=== PATIENT | male | born 1950 | race Caucasian/White ===

== ENCOUNTER 2019-03-07 15:51 | Emergency (ER) | payer OTHER ==
[~2019-03-07] VITALS: Ht 170.2 cm; Wt 68.0 kg
[2019-03-07] MEDS ORDERED: Roxicodone5 MG PO (17:23)
== END 2019-03-07 17:53 | disposition home or self-care (01) ==
LOC: ER 15:51
DX: S42.032A Displaced fracture of lateral end of left clavicle, initial encounter for closed fracture (principal); S00.81XA Abrasion of other part of head, initial encounter; S60.512A Abrasion of left hand, initial encounter; V18.0XXA Pedal cycle driver injured in noncollision transport accident in nontraffic accident, initial encounter
CPT/HCPCS: 29105; 36415; 70450; 72125; 73030; 96374-59; 96376-59; 99284-25; J3010

== ENCOUNTER 2019-03-10 09:54 | Day surgery (SDC) | payer OTHER ==
[~2019-03-10] VITALS: Ht 170.2 cm; Wt 62.2 kg
[~2019-03-10 09:54] MED LIST: Roxicodone5 MG PO
--- NOTE | 2019-03-10 10:26 | NUR ---
03/10/19 1026 Meghana Montanez WENT OUT TO WAITING AREA AND SPOKE WITH PATIENT AND SPOUSE TO LET THEM KNOW I AM AWARE THEY ARE HERE AND THEY ARE NEXT TO BE CHECKED IN. EXPLAINED I AM WAITING FOR PRIOR SURGICAL PATIENT TO MOVE TO THE OR AND THEN I WILL BRING HIM BACK. PATIENT AND SPOUSE BOTH VERBALIZE UNDERSTANDING
--- NOTE | 2019-03-10 13:25 | NUR ---
03/10/19 1325 Nelson,Claudia L BILATERAL FLANK AREA WITH BRUISING. SCATTERED ABRASIONS NOTED TO BILATERAL ARMS. ABRASION ON FOREHEAD. LEFT CLAVICLE AREA WITH GENERALIZED BRUISING. DENTURES WITH CHIPPED TEETH. PATIENT STATED THAT "THE DOG GOT A HOLD OF THEM".
--- NOTE | 2019-03-10 15:13 | NUR ---
03/10/19 1513 Meghana Montanez PATIENT ABLE TO TRANSFER TO CHAIR FROM [facility] WITH VERY MINIMAL ASSISTANCE. HE DOES COMPLAIN OF PAIN AND HE IS MEDICATED PER MD ORDER PATIENT UP IN RECLINER, DRINKING JUICE AND EATING CRACKERS. AT CHAIRSIDE.
== END 2019-03-10 16:06 | disposition home or self-care (01) ==
LOC: ORSCSDS 09:54
PROVIDERS: Orthopaedic Surgery
PROC: 0PSB04Z Reposition Left Clavicle with Internal Fixation Device, Open Approach (ICD-10-PCS; principal; 2019-03-10 11:45)
PROC: 0MQ20ZZ Repair Left Shoulder Bursa and Ligament, Open Approach (ICD-10-PCS; principal; 2019-03-10 11:45)
DX: S42.032A Displaced fracture of lateral end of left clavicle, initial encounter for closed fracture (principal); S43.82XA Sprain of other specified parts of left shoulder girdle, initial encounter; V19.9XXA Pedal cyclist (driver) (passenger) injured in unspecified traffic accident, initial encounter; I10 Essential (primary) hypertension; K21.9 Gastro-esophageal reflux disease without esophagitis
CPT/HCPCS: 73000; C1713; J0690; J1100; J2250; J2370; J2405; J2704; J2710; J3010; J7120

== ENCOUNTER 2020-08-31 21:21 | Inpatient (IN) | payer OTHER ==
[~2020-08-31] VITALS: Ht 170.2 cm; Wt 63.6 kg
[2020-08-31 21:35] LABS: BASOPHILS ABSOLUTE AUTO 0.07 K/mm3 (0.00-0.23); BASOPHILS PERCENT AUTO 0 % (0-2); EOSINOPHILS ABSOLUTE AUTO 0.11 K/mm3 (0.00-0.68); EOSINOPHILS PERCENT AUTO 1 % (0-6); Hematocrit 41.5 % (37.0-53.0); Hemoglobin 13.7 g/dL (13.5-17.5); IMMATURE GRAN ABSOLUTE AUTO 0.11 K/mm3 (0.00-0.10); IMMATURE GRAN PERCENT AUTO 1 % (0-1); LYMPHOCYTES ABSOLUTE AUTO 2.32 K/mm3 (0.84-5.20); LYMPHOCYTES PERCENT AUTO 13 % (21-46); MONOCYTES PERCENT AUTO 9 % (4-13); Mean Corpuscular HGB 30.2 pg (26.0-34.0); Mean Corpuscular Volume 91 fL (80-100); Mean Platelet Volume 9.3 fL (9.1-12.4); NEUTROPHILS PERCENT AUTO 77 % (41-73); Platelet Count 267 K/mm3 (150-400); RDW Coefficient Variation 13.9 % (11.7-14.2); RDW Standard Deviation 46.9 fL (35.1-46.3); Red Blood Cell Count 4.54 M/mm3 (4.30-5.90); White Blood Cell Count 17.51 K/mm3 (4.00-11.30)
[2020-08-31 21:54] LABS: Alanine Aminotransfer (ALT/SGP 69 U/L (12-78); Albumin, Blood 3.1 g/dL (3.4-5.0); Albumin/Globulin Ratio 0.9 (0.8-1.8); Alk Phos 61 U/L (50-136); Anion Gap 5 mmol/L (6-16); Aspartate Aminotrans (AST/SGOT 69 U/L (12-37); Bilirubin, Total 0.2 mg/dL (0.1-1.0); Blood Urea Nitrogen 16 mg/dL (8-24); Bun/Creatinine Ratio 18.7 (12.0-20.0); CO2, Blood 28 mmol/L (21-32); Calcium, Blood 8.9 mg/dL (8.5-10.1); Chloride, Blood 106 mmol/L (98-108); Creatinine, Blood 0.85 mg/dL (0.60-1.20); Globulin, Blood 3.6 g/dL (2.2-4.0); Glomerular Filtration Rate >60 (60-); Glucose, Blood 116 mg/dL (70-99); Potassium, Blood 4.2 mmol/L (3.5-5.5); Sodium, Blood 139 mmol/L (136-145); Total Protein, Blood 6.7 g/dL (6.4-8.2)
--- NOTE | 2020-09-01 01:06 | NUR ---
PT ARRIVED TO FLOOR FROM ER. PT A/O, VSS, PT REP DIZZINESS WHEN SITTING UP. LEFT PUPIL NOTED 4MM. RIGHT 2MM. BOTH PUPILS BRISK RESPONSE TO LIGHT. PT DENIES VISUAL DISTURBANCES. RIGHT ELBOW WRAPPED IN KERLEX W/SANG DRNG NOTED. PT REP PAIN W/MVMT TO RUE. RIGHT [employer] THAN LEFT. SWELLING PRESENT TO RIGHT CLAVICLE, PT REP PAIN W/PALP. PT HAS SCATTERED ABRASIONS T/O RIGHT SIDE OF BODY. LACERATION TO RIGHT TOP OF HEAD W/SUTURES AND STERI STRIP. PT ORIENTED TO ROOM/CALL LIGHT AND NPO STATUS. COVID SWAB COLLECTED. WILL MONITOR AND TX PER ORDERS.
--- NOTE | 2020-09-01 01:15 | NUR ---
PT REFUSING TO AHVE RIGHT ELBOW DRESSING CHANGED. PT STATES WOUND WAS CLEANSED ANSD DRESSING IN ER. "THEY TOLD ME I CAN LEAVE IT UNTIL THE DR COMES TO SEE IN IN THE MORNING" PT EDUCATED ON IMPORTANCE OF VISUALIZING AND CLEANING WOUND. PT STATES "IT'S FINE FOR NOW, IT HURTS TOO MUCH TO MOVE IT"
[2020-09-01 01:37] LABS: Influenza A, PCR NEGATIVE (NEGATIVE); Influenza B, PCR NEGATIVE (NEGATIVE); Resp Syncytial Virus, PCR NEGATIVE (NEGATIVE); SARS-Cov-2 (COVID-19) PCR, MMC NEGATIVE (NEGATIVE)
--- NOTE | 2020-09-01 06:22 | NUR ---
PT VSS SINCE ARRIVING TO FLOOR. PT DENIES DIZZINESS AT REST, BUT DOES BECOME DIZZY WHEN SITTING UP. NO CHANGES TO PUPILS, PT DENIES VISUAL DISTURBANCES. RUE ELEVATED ON PILLOW, PAIN MGD PER EMAR W/REP RELIEF. PT NPO SINCE ARRIVING TO FLOOR, AWAITING SURGICAL CONSULT
--- NOTE | 2020-09-01 07:34 | NUR ---
DR COTTER CALLED IN FOR UPDATE ON PT. STATES PLANS TO ROUND ON PT LATER THIS AM.
--- NOTE | 2020-09-01 09:00 | NUR ---
PT IS ALERT AND ORIENTED LYING IN BED. PT REPORTS PAIN TOLERABLE AFTER IV FENTANYL. R PUPIL AT 2MM AND L PUPIL 3MM, BOTH REACTIVE TO LIGHT AND TRACK. PT ALSO REPORTS SOME DIZZINESS. DR. MORENO NOTIFIED OF UNEQUAL PUPIL SIZE AND DIZZINESS. WILL CONTINUE TO MONITOR FOR CHANGE IN NEUROLOGICAL STATUS. R ELBOW WRAPPED IN JENNIFER WRAP, DRESSING CHANGED THIS AM BY DR. COTTER. PLAN IS FOR SURGERY TODAY, PT IS NPO. PT HAS A LACERATION TO THE RIGHT SIDE OF HIS HEAD, COVERED WITH A STERI STRIP, AND AN ABRASION TO HIS RIGHT KNEE. PT MOVES ALL EXTREMITIES WELL AND CAN WIGGLE THE FINGERS OF HIS RIGHT HAND. LUNG SOUNDS CLEAR. HEART SOUNDS WNL. BOWEL SOUNDS PRESENT X4 QUADRANTS. WILL CONTINUE TO MONITOR.
--- NOTE | 2020-09-01 13:11 | NUR ---
History, Chart, Medications and Allergies reviewed before start of procedure.Patient confirms NPO status and agrees with scheduled surgery. Pre-Op teaching done. Pt verbalizes understanding.
--- NOTE | 2020-09-01 18:54 | NUR ---
SHIFT SUMMARY PT IS A&O X4. PT HAS IV IN LEFT UPPER ARM AND IS PATENT. PT HAS BEEN IN PLEASENT MOOD MOST OF SHIFT. PT HAD SURGERY TO REPAIR R CLAVICAL AND RIGHT ELBOW FX. PT SIGNIFICANT OTHER @ BEDSIDE. PT WILL SLEEP BETWEEN ROUNDS. PT DID UTILIZE CALL LIGHT FOR ASSISTANCE TO RESTROOM. PT GAIT IS WEAK DUE TO HIP INJURY RESULTING FROM ADMITTING TRAUMA. PT RIGHT ARM DRESSING CLEAN DRY AND INTACT. RIGHT ARM IS IN SLING. PT GAURDS RIGHT ARM WELL. DISTAL PULSES ARE STRONG. PT IS EATING A REGULAR DIET WITH THIN LIQUIDS.
--- NOTE | 2020-09-01 19:40 | NUR ---
SHIFT SUMMARY PT IS POD#0 FROM R ELBOW FX REPAIR AND R CLAVICAL REPAIR. PAIN HAS BEEN MANAGED WITH FENTANYL PRE OP AND OXY POST OP. PT'S S/O HAS BEEN AT THE BEDSIDE FOR SUPPORT THIS EVENING. PT IS TOLERATING PO. PT IS MOVING HIS R HAND AND CAP REFIL WNL. RADIAL PULSE STRONG AND PRESENT TO R ARM. R ARM IN SLING. VSS. REPORT GIVEN TO FRANCISCO LEVI.
--- NOTE | 2020-09-01 21:08 | NUR ---
Patient gives permission for this student to participate in care
[2020-09-02 04:53] LABS: BASOPHILS ABSOLUTE AUTO 0.03 K/mm3 (0.00-0.23); BASOPHILS PERCENT AUTO 0 % (0-2); EOSINOPHILS ABSOLUTE AUTO 0.02 K/mm3 (0.00-0.68); EOSINOPHILS PERCENT AUTO 0 % (0-6); Hematocrit 37.1 % (37.0-53.0); Hemoglobin 12.4 g/dL (13.5-17.5); IMMATURE GRAN ABSOLUTE AUTO 0.08 K/mm3 (0.00-0.10); IMMATURE GRAN PERCENT AUTO 1 % (0-1); LYMPHOCYTES ABSOLUTE AUTO 2.45 K/mm3 (0.84-5.20); LYMPHOCYTES PERCENT AUTO 15 % (21-46); MONOCYTES ABSOLUTE AUTO 1.67 K/mm3 (0.16-1.47); MONOCYTES PERCENT AUTO 10 % (4-13); Mean Corpuscular HGB 30.3 pg (26.0-34.0); Mean Corpuscular HGB Conc 33.4 g/dL (31.5-36.5); Mean Corpuscular Volume 91 fL (80-100); Mean Platelet Volume 9.8 fL (9.1-12.4); NEUTROPHILS ABSOLUTE AUTO 12.61 K/mm3 (1.96-9.15); NEUTROPHILS PERCENT AUTO 75 % (41-73); Platelet Count 243 K/mm3 (150-400); RDW Coefficient Variation 13.9 % (11.7-14.2); RDW Standard Deviation 47.4 fL (35.1-46.3); Red Blood Cell Count 4.09 M/mm3 (4.30-5.90); White Blood Cell Count 16.86 K/mm3 (4.00-11.30)
--- NOTE | 2020-09-02 05:33 | NUR ---
SHIFT SUMMARY: POD#1 ORIF RIGHT DISTAL CLAVICAL AND ORIF W/IND OF RIGHT OPEN OLECRANON FX,pATIENT A&OX4 LYING IN BED, PAIN CONTROLLED W/ MEDICATIONSX1 [id number],DENIES NAUSEA T/O SHIFT DRESSING TO RUE C/D/I IN SLING, TINGLING TO RUE POSTOP NO ACUTE CHANGE THIS SHIFT, MOVES FINGERS WELL CAP REFILL BRISK <3 , IVF +IVABX PER ORDERS, GOOD PO INTAKE +URINE OUTPUT VOIDS TO URINAL, STRICT NON WT BEARING TO UPPER EXTREMITY W/ SMALL ROM EXCERCISES PER OT, PATIENT SLEPT WELL INTERMITTENTLY T/O SHIFT. PT IS CURRENTLY RESTING IN BED WITH CALL LIGHT IN REACH.
[2020-09-02 05:34] LABS: Anion Gap 5 mmol/L (6-16); Blood Urea Nitrogen 18 mg/dL (8-24); Bun/Creatinine Ratio 19.5 (12.0-20.0); CO2, Blood 25 mmol/L (21-32); Calcium, Blood 8.5 mg/dL (8.5-10.1); Chloride, Blood 111 mmol/L (98-108); Creatinine, Blood 0.92 mg/dL (0.60-1.20); Glomerular Filtration Rate >60 (60-); Glucose, Blood 120 mg/dL (70-99); Potassium, Blood 4.4 mmol/L (3.5-5.5); Sodium, Blood 141 mmol/L (136-145)
--- NOTE | 2020-09-02 12:36 | NUR ---
BEER REFUSAL PATIENT REFUSED THE BEER THAT CAME ON THE LUNCH TRAY.
--- NOTE | 2020-09-02 16:35 | NUR ---
SHIFT SUMMARY PT POD 1 ORIF R CLAVICLE AND I&D R ELBOW. DRESSING CHANGED BY DR COTTER THIS SHIFT, AQUACEL PLACED TO CLAVICLE, GAUZE/ABD/JENNIFER WRAP TO ELBOW/FOREARM. SWELLING TO R HAND UNCHANGED THIS SHIFT. PT DID HAVE INCREASE OF PAIN NOT RELIEVED WITH PO, MEDICATED WITH IVP DILAUDID ONCE PER EMAR AND ICE APPLIED R ELBOW. PT DENIES N/V, TOLERATING REGULAR DIET, SALINE LOCKED. USING URINAL TO VOID W/O DIFFICULTY. CONTINUE WITH IV ABX PER MD ORDER FOR 48 HRS PRIOR TO DC HOME ON ORAL ABX. AFEBRILE T/O SHIFT. HYPERTENSION MANAGED WITH IV MEDS PER EMAR. CIWA 2, PT REFUSES BEER WITH MEALS HE STATES HE "IS NOT EXPERIENCING WITHDRAWLS".
--- NOTE | 2020-09-03 06:54 | NUR ---
SHIFT SUMMARY: PODX2 RIGHT CLAV W/ I&D ELBOW FX OPEN IN SLING,DRESSINGS C/D/I PT A&OX4,SELF AMBULATES W/ MINIMAL ASSIST,PAIN MANAGED W/ MEDICATIONS, APPEARS TO BE RESTING COMFORTABLY CALL LIGHT IN REACH
[2020-09-03 08:51] LABS: BASOPHILS ABSOLUTE AUTO 0.07 K/mm3 (0.00-0.23); BASOPHILS PERCENT AUTO 0 % (0-2); EOSINOPHILS ABSOLUTE AUTO 0.08 K/mm3 (0.00-0.68); EOSINOPHILS PERCENT AUTO 0 % (0-6); Hematocrit 42.5 % (37.0-53.0); Hemoglobin 13.9 g/dL (13.5-17.5); IMMATURE GRAN ABSOLUTE AUTO 0.12 K/mm3 (0.00-0.10); IMMATURE GRAN PERCENT AUTO 1 % (0-1); LYMPHOCYTES ABSOLUTE AUTO 2.42 K/mm3 (0.84-5.20); LYMPHOCYTES PERCENT AUTO 13 % (21-46); MONOCYTES ABSOLUTE AUTO 1.76 K/mm3 (0.16-1.47); MONOCYTES PERCENT AUTO 10 % (4-13); Mean Corpuscular HGB 30.1 pg (26.0-34.0); Mean Corpuscular HGB Conc 32.7 g/dL (31.5-36.5); Mean Corpuscular Volume 92 fL (80-100); Mean Platelet Volume 9.6 fL (9.1-12.4); NEUTROPHILS ABSOLUTE AUTO 13.86 K/mm3 (1.96-9.15); NEUTROPHILS PERCENT AUTO 76 % (41-73); Platelet Count 266 K/mm3 (150-400); RDW Coefficient Variation 14.1 % (11.7-14.2); RDW Standard Deviation 47.6 fL (35.1-46.3); Red Blood Cell Count 4.62 M/mm3 (4.30-5.90); White Blood Cell Count 18.31 K/mm3 (4.00-11.30)
[2020-09-03 09:08] LABS: Anion Gap 5 mmol/L (6-16); Blood Urea Nitrogen 12 mg/dL (8-24); Bun/Creatinine Ratio 16.1 (12.0-20.0); CO2, Blood 26 mmol/L (21-32); Calcium, Blood 8.7 mg/dL (8.5-10.1); Chloride, Blood 104 mmol/L (98-108); Creatinine, Blood 0.74 mg/dL (0.60-1.20); Glomerular Filtration Rate >60 (60-); Glucose, Blood 130 mg/dL (70-99); Potassium, Blood 3.9 mmol/L (3.5-5.5); Sodium, Blood 135 mmol/L (136-145); Vancomycin, Trough 10.8 ug/mL (5.0-10.0)
[2020-09-03] MEDS ORDERED: Percocet 5-3251 EACH PO (09:45)
[2020-09-03] MEDS ORDERED: SULTRIDS PO (09:45)
[2020-09-03] MEDS ORDERED: AMLO5 PO (10:45)
--- NOTE | 2020-09-03 12:51 | NUR ---
DISCHARGE PT DISCHARGED HOME FROM UNIT AT APROX 1200. PT GIVEN WRITTEN AND VERBAL DISCHARGE INSTRUCTIONS AND VERBALIZED UNDERSTANDING. GIVEN EXTRA DRESSING SUPPLIES AND THIS RN DEMONSTRATED DRESSING CHANGE, BOTH AND PT VERBALIZED UNDERSTANDING. IV REMOVED, WHEELCHAIR TO CAR.
--- NOTE | 2020-09-04 12:57 | NUR ---
NORVASC 5 MG PO DAILY PHONED TO [facility] PER DR STEVE PROGRESS NOTE
--- NOTE | 2020-09-05 10:55 | NUR ---
09/05/20 1055 Tracy Rosas VERIFICATIONS: EDIT CHART.
== END 2020-09-03 12:35 | disposition home or self-care (01) | DRG 510 ==
LOC: ER 21:21 → SURS 21:22
PROVIDERS: Emergency Medicine; Internal Medicine; Orthopaedic Surgery; ADMIT Surgery
PROC: 0HQ0XZZ Repair Scalp Skin, External Approach (ICD-10-PCS; 2020-09-01)
PROC: 3E0234Z Introduction of Serum, Toxoid and Vaccine into Muscle, Percutaneous Approach (ICD-10-PCS; 2020-09-01)
PROC: 0PSK04Z Reposition Right Ulna with Internal Fixation Device, Open Approach (ICD-10-PCS; principal; 2020-09-01 11:30)
PROC: 0PS904Z Reposition Right Clavicle with Internal Fixation Device, Open Approach (ICD-10-PCS; 2020-09-01 11:30)
DX: S42.031A Displaced fracture of lateral end of right clavicle, initial encounter for closed fracture (principal); S52.021B Displaced fracture of olecranon process without intraarticular extension of right ulna, initial encounter for open fracture type I or II; S01.01XA Laceration without foreign body of scalp, initial encounter; S09.90XA Unspecified injury of head, initial encounter; Z20.822 Contact with and (suspected) exposure to COVID-19; R73.9 Hyperglycemia, unspecified; Z23 Encounter for immunization; R79.89 Other specified abnormal findings of blood chemistry; D72.829 Elevated white blood cell count, unspecified; Z98.890 Other specified postprocedural states; V20.4XXA Motorcycle driver injured in collision with pedestrian or animal in traffic accident, initial encounter
CPT/HCPCS: 0241U; 12001; 36415; 70450; 71260; 73030; 73060; 73200; 74177; 76377; 80048; 80053; 80202; 83735; 85025; 90471; 90670; 90714; 93005; 93010; 96374-59; 96375; 96375-59; 96376; 99285-25; A9270; C1713; C1769; G0378; J0360; J0696; J1100; J1170; J1885; J2250; J2270; J2405; J2704; J3010; J3370; J7120; Q9967

== ENCOUNTER → 2024-06-14 | Outpatient (CLI) | payer OTHER ==
[~2024-06-14] MED LIST changes: +AMLO5 PO; +Percocet 5-3251 EACH PO; +SULTRIDS PO
[2024-06-18 17:02] LABS: AMPHETAMINE,URN,QUANT 180 ng/mL; MDA,URN,QUANT <200 ng/mL; MDEA,URN,QUANT <200 ng/mL; MDMA,URN,QUANT <200 ng/mL; METHAMPHETAMINE,URN,QUANT 471 ng/mL; PHENTERMINE,URN,QUANT <200 ng/mL
== END ==
LOC: LAB SHORT 19:13 → LAB 19:13
PROVIDERS: Family Medicine
DX: Z51.81 Encounter for therapeutic drug level monitoring (principal); Z79.899 Other long term (current) drug therapy
CPT/HCPCS: G0480

== ENCOUNTER → 2024-08-26 | Outpatient (CLI) | payer OTHER | LOC: LAB SHORT 17:59 → LAB 17:59 | DX: B35.1 Tinea unguium (principal) | CPT/HCPCS: 87102; 87220 ==

== ENCOUNTER → 2025-01-27 | Outpatient (CLI) | payer OTHER | LOC: LAB SHORT 15:12 → LAB 15:12 | DX: L30.9 Dermatitis, unspecified (principal) | CPT/HCPCS: 87071; 87075; 87077; 87102; 87147; 87186; 87205; 87220 ==

== ENCOUNTER → 2025-04-14 | Outpatient (CLI) | payer OTHER | LOC: LAB 17:34 → LAB SHORT 17:34 | DX: S69.91XA Unspecified injury of right wrist, hand and finger(s), initial encounter (principal) | CPT/HCPCS: 87070; 87205 ==